=== PATIENT | female | born 1975 | race Caucasian/White ===

== ENCOUNTER → 2016-08-02 | Outpatient (CLI) | payer OTHER ==
[~2016-08-02] MED LIST: PRENATAL1 TA2 PO; PROTONIX40 MG PO
== END ==
LOC: LAC 15:14
DX: Z39.1 Encounter for care and examination of lactating mother (principal); Z71.89 Other specified counseling

== ENCOUNTER 2020-09-05 22:51 | Emergency (ER) | payer OTHER | END 2020-09-05 23:17 | disposition left against medical advice (07) | LOC: COL.ER 22:51 | DX: R69 Illness, unspecified (principal) ==